=== PATIENT | male | born 1980 | race Caucasian/White ===

== ENCOUNTER → 2019-03-13 15:40 | Outpatient (BNVA) | payer OTHER, SELFPAY | PROVIDERS: PCP Family Medicine; Visit Provider Nurse Practitioner Psychiatric/Mental Health | DX: F33.2 Major depressive disorder, recurrent severe without psychotic features (principal); F43.12 Post-traumatic stress disorder, chronic; F41.1 Generalized anxiety disorder | CPT/HCPCS: 99214 ==

== ENCOUNTER → 2019-03-15 09:47 | Outpatient (BNVA) | payer OTHER, SELFPAY | PROVIDERS: PCP Family Medicine; Visit Provider Nurse Practitioner Psychiatric/Mental Health | DX: F41.1 Generalized anxiety disorder (principal); F43.12 Post-traumatic stress disorder, chronic; F33.2 Major depressive disorder, recurrent severe without psychotic features | CPT/HCPCS: 99215 ==

== ENCOUNTER → 2019-03-22 14:34 | Outpatient (BNVA) | payer OTHER, SELFPAY | PROVIDERS: PCP Family Medicine; Visit Provider Nurse Practitioner Psychiatric/Mental Health | DX: F41.1 Generalized anxiety disorder (principal); F43.12 Post-traumatic stress disorder, chronic; F33.2 Major depressive disorder, recurrent severe without psychotic features | CPT/HCPCS: 99214 ==

== ENCOUNTER → 2019-03-27 11:05 | Outpatient (BNVA) | payer OTHER, SELFPAY | PROVIDERS: PCP Family Medicine; Visit Provider Nurse Practitioner Psychiatric/Mental Health | DX: F41.1 Generalized anxiety disorder (principal); F43.12 Post-traumatic stress disorder, chronic; F33.2 Major depressive disorder, recurrent severe without psychotic features; Z79.899 Other long term (current) drug therapy | CPT/HCPCS: 99214 ==

== ENCOUNTER → 2019-04-02 09:48 | Outpatient (BNVA) | payer OTHER, SELFPAY | PROVIDERS: PCP Family Medicine; Visit Provider Nurse Practitioner Psychiatric/Mental Health | DX: F43.12 Post-traumatic stress disorder, chronic (principal); F33.2 Major depressive disorder, recurrent severe without psychotic features; F41.1 Generalized anxiety disorder | CPT/HCPCS: 99214 ==

== ENCOUNTER → 2019-05-24 07:13 | Outpatient (BNVA) | payer OTHER, SELFPAY | PROVIDERS: PCP Family Medicine; Visit Provider Nurse Practitioner Psychiatric/Mental Health | DX: F43.12 Post-traumatic stress disorder, chronic (principal); F33.2 Major depressive disorder, recurrent severe without psychotic features; F41.1 Generalized anxiety disorder | CPT/HCPCS: 99214 ==

== ENCOUNTER → 2019-06-14 07:40 | Outpatient (BNVA) | payer OTHER, SELFPAY | PROVIDERS: PCP Family Medicine; Visit Provider Nurse Practitioner Psychiatric/Mental Health | DX: F43.12 Post-traumatic stress disorder, chronic (principal); F33.2 Major depressive disorder, recurrent severe without psychotic features; F41.1 Generalized anxiety disorder | CPT/HCPCS: 99214 ==

== ENCOUNTER → 2019-06-27 07:37 | Outpatient (BNVA) | payer OTHER, SELFPAY | PROVIDERS: PCP Family Medicine; Visit Provider Nurse Practitioner Psychiatric/Mental Health | DX: F43.12 Post-traumatic stress disorder, chronic (principal); F33.2 Major depressive disorder, recurrent severe without psychotic features; F41.1 Generalized anxiety disorder | CPT/HCPCS: 99214 ==

== ENCOUNTER → 2019-07-12 08:14 | Outpatient (BNVA) | payer OTHER, SELFPAY | PROVIDERS: Visit Provider Nurse Practitioner Psychiatric/Mental Health | DX: F43.12 Post-traumatic stress disorder, chronic (principal); F33.2 Major depressive disorder, recurrent severe without psychotic features; F41.1 Generalized anxiety disorder | CPT/HCPCS: 99214 ==

== ENCOUNTER → 2019-07-26 07:34 | Outpatient (BNVA) | payer OTHER, SELFPAY | PROVIDERS: Visit Provider Nurse Practitioner Psychiatric/Mental Health | DX: F43.12 Post-traumatic stress disorder, chronic (principal); F33.2 Major depressive disorder, recurrent severe without psychotic features; F41.1 Generalized anxiety disorder | CPT/HCPCS: 99213 ==

== ENCOUNTER → 2024-01-03 08:13 | Outpatient (BNVA) | payer OTHER, SELFPAY | PROVIDERS: Referring Provider Nurse Practitioner Family; Visit Provider Student in an Organized Health Care Education/Training Program | DX: Z12.11 Encounter for screening for malignant neoplasm of colon (principal); R03.0 Elevated blood-pressure reading, without diagnosis of hypertension | CPT/HCPCS: 72050; 99204 ==

== ENCOUNTER 2024-01-10 06:59 | Outpatient (CLI) | payer OTHER, SELFPAY ==
--- NOTE | 2024-01-10 07:07 | MR_ITS ---
WS: [id number] MRI CERVICAL SPINE NONCONTRAST HISTORY: CHRONIC NECK PAIN COMPARISON: Radiograph 01/03/2024 Technique: Multiplanar, multisequence noncontrast imaging of the cervical spine. Straightening and reversal of the normal cervical lordosis centered at C5-6. Anterior wedging of C6 f rom a prior fracture. There is a small amount of reactive marrow edema in the endplates of C5, C6 and C7. Reversal the normal curvature at C5-6 resulting in cord contact by the vertebral bodies. No cord atrophy or myelomalacia. Craniocervical junction, C1 and C2 relationship, odontoid process and soft tissues are normal. C2-C3: Mild LEFT facet arthritis and mild foraminal narrowing. There is shallow LEFT foraminal disc p rotrusion. C3-C4: Normal. C4-C5: Normal. C5-C6: Osteophytic ridging, annular disc bulging with a central disc protrusion, retrolisthesis and f acet arthritis contributing to moderate central and bilateral foraminal stenosis. Effacement of ventr al CSF. C6-C7: Osteophytic ridging, annular disc bulging with facet disease and retrolisthesis of the vertebr al bodies contributing to severe central and bilateral foraminal stenosis. Nerve roots are being disp laced by osteophytosis. C7-T1: Normal. Paraspinal soft tissue are normal. MR/MR cervical spin wo con* [id number] IMPRESSION: 1. Retrolisthesis of C5 and C6 with contact and posterior displacement of the cervical cord. 2. No myelomalacia or cord atrophy. 3. C6-7: Severe central and bilateral foraminal stenosis. 4. C5-6: Moderate central with bilateral foraminal stenosis. 5. C2-3: Mild LEFT foraminal narrowing with a small LEFT foraminal disc protru reese.
== END 2024-01-10 07:00 | disposition home or self-care (01) ==
LOC: RAD 07:01
PROVIDERS: PCP Nurse Practitioner Family; Visit Provider Nurse Practitioner Family
DX: S12.501D Unspecified nondisplaced fracture of sixth cervical vertebra, subsequent encounter for fracture with routine healing (principal); M50.322 Other cervical disc degeneration at C5-C6 level; M99.61 Osseous and subluxation stenosis of intervertebral foramina of cervical region; X58.XXXA Exposure to other specified factors, initial encounter
CPT/HCPCS: 72141

== ENCOUNTER → 2024-01-12 08:50 | Outpatient (BNVA) | payer OTHER, SELFPAY | PROVIDERS: PCP Nurse Practitioner Family; Visit Provider Orthopaedic Surgery | DX: M47.22 Other spondylosis with radiculopathy, cervical region (principal) | CPT/HCPCS: 99214 ==

== ENCOUNTER 2024-02-22 06:30 | Outpatient (RCR) | payer OTHER, SELFPAY | END 2024-03-23 23:59 | disposition home or self-care (01) | LOC: APT 06:30 | PROVIDERS: Visit Provider Orthopaedic Surgery | DX: M54.2 Cervicalgia (principal); G89.29 Other chronic pain | CPT/HCPCS: 97161 ==

== ENCOUNTER 2024-04-09 06:37 | Day surgery (SDC) | payer OTHER, SELFPAY ==
--- NOTE | 2024-04-08 12:23 | P.ANESASSM_ITS ---
Pre-Anesthetic Assessment Height/Weight: Height 5 ft 9 in Preop Diagnosis: Screening colonoscopy Operation Date: 04/09/24 07:45 Proposed Procedures p Colonoscopy- 89074, Z12.11 G0121(Not Applicable) - Roberto Dowell MD Was Beta Jewel taken within 24 hours: N/A Was Clonidine taken within 24 hours: N/A Social Tobacco and No alcohol Exam alert, oriented x 3, clear to auscultation bilaterally and regular rate & rhythm Airway Submandibular: within normal limits Cervical ROM: within normal limits Mallampati: Class II Dentition: full Anesthetic Plan ASA status: 2 Anesthesia: MAC Other: No prior issues with anesthesia Completed bowel prep History of MDD and PTSD No home meds, untreated hypertension Plan for MAC anesthetic Medications/Allergies Home Medications ?Medication ?Instructions ?Recorded ?Confirmed ?Last Taken ?Type No Known Home Medications 04/06/2403/24 Unknown History Allergies Allergy/AdvReac Type Severity Reaction Status Date / Time No Known Allergies Allergy Verified 04/06/24 08:21 [facility] Anesthesia Medical History Generalized anxiety disorder Chronic post-traumatic stress disorder Major depressive disorder, recurrent severe without psychotic features Compression fracture Family History Father Cancer panreatic Family/Other Cancer Aunt- lung spread to brain Family/Other Colon cancer uncle Cancer liver Family/Other Cancer grandpa on mothers side- unknown what kind Social History Smoking and tobacco/nicotine status: unknown if used tobacco/nicotine Alcohol intake: current Alcohol intake frequency: holidays/special occasions only Data Anesthesia Cardiac Studies: No Data to Display
[2024-04-09 06:51] VITALS: BP 155/102; PULSE 76; RESP 18; TEMP 36.4; O2SAT 96; BMI 34.0
[2024-04-09] MEDS: sodium chloride 0.9% 500 ML 15 ML IV (07:04)
--- NOTE | 2024-04-09 08:02 | W.PM.OPSFHP ---
Same Day Surgery H&P Indication for Procedure/HPI DATE OF PROCEDURE: April 09, 2024 CHIEF COMPLAINT/INDICATIONFOR SURGICAL PROCEDURE: screening colonoscopy PREOP DIAGNOSIS: screening colonoscopy PLANNED PROCEDURE: Operation Date: 04/09/24 07:45 Proposed Procedures p Colonoscopy- 44539, Z12.11 G0121(Not Applicable) - Roberto Dowell MD Medications/Allergies* Home Medications ?Medication ?Instructions ?Recorded ?Confirmed ?Type No Known Home Medications 04/06/24 04/06/24 History Allergies/Adverse Reactions Allergy/AdvReac Type Severity Reaction Status Date / Time No Known Allergies Allergy Verified 04/06/24 08:21 Current Medications: Generic Name Dose Route Start Last Admin Trade Name Freq PRN Reason Stop Dose Admin Sodium Chloride 500 mls @ 15 mls/hr 04/09/24 06:43 04/09/24 07:04 Sodium Chloride 0.9% IV 04/10/24 06:42 15 mls/hr .Q24H PRN Administration COLONOSCOPY FLUIDS Pertinent History/Comorbid Conditions* Medical History (Updated 01/12/24 @ 09:13 by Pardeep Coelho DO) Generalized anxiety disorder Chronic post-traumatic stress disorder Major depressive disorder, recurrent severe without psychotic features Compression fracture Family History (Updated 01/03/24 @ 08:20 by MER Avilez) Colon cancer Family/Other uncle Cancer Father panreatic Family/Other Aunt- lung spread to brain Family/Other liver Family/Other grandpa on mothers side- unknown what kind Social History Smoking and tobacco/nicotine status: unknown if used tobacco/nicotine Alcohol intake: current Alcohol intake frequency: holidays/special occasions only Pertinent Exam Findings alert, oriented x 3, clear to auscultation bilaterally, regular rate & rhythm and procedure specific exam findings abdomen soft, nt, nd Recommendations Surgery/Procedure today Coding Level of Care Code Acute Code for Chg Fwd
[2024-04-09 08:39] VITALS: BP 140/103; PULSE 65; RESP 16; TEMP 36.1; O2SAT 92
[2024-04-09 08:50] VITALS: BP 131/98; PULSE 66; RESP 17; O2SAT 94
[2024-04-09 09:00] VITALS: BP 128/92; PULSE 58; RESP 16; O2SAT 95
--- NOTE | 2024-04-09 09:12 | ANE.PACU2 ---
Inpatient post-anesthesia follow up: Airway intact: Yes Vital signs: Temperature 97.0 F Pulse Rate 58 Respiratory Rate 16 Blood Pressure 128/92 Pulse Oximetry 95 Oxygen Delivery Me thod Room Air Oxygen Flow Rate 3 Fraction of Inspir ed Oxygen Hydration adequate: Yes Nausea and vomiting: No Pain level: 1 Mental status: Baseline
== END 2024-04-09 09:12 | disposition home or self-care (01) ==
PROVIDERS: Visit Provider Student in an Organized Health Care Education/Training Program
PROC: 0DJD8ZZ Inspection of Lower Intestinal Tract, Via Natural or Artificial Opening Endoscopic (ICD-10-PCS; CPT 45378; principal; 2024-04-09 07:45)
DX: Z12.11 Encounter for screening for malignant neoplasm of colon (principal); K57.30 Diverticulosis of large intestine without perforation or abscess without bleeding; I10 Essential (primary) hypertension; Z80.0 Family history of malignant neoplasm of digestive organs
CPT/HCPCS: 45378; J2704; J7040

== ENCOUNTER → 2024-05-14 13:01 | Outpatient (BNVA) | payer OTHER, SELFPAY | PROVIDERS: PCP Nurse Practitioner Family; Visit Provider Nurse Practitioner Family | DX: M47.22 Other spondylosis with radiculopathy, cervical region (principal); M54.2 Cervicalgia | CPT/HCPCS: 99214 ==